=== PATIENT | male | born 1945 | race Caucasian/White ===

== ENCOUNTER 2022-09-28 23:09 | Inpatient (IN) | payer BC, OTHER ==
[2022-09-28] MEDS ORDERED: SODIUM CHLORIDE 0.9% 500 ML INFUS.BAG IV ONE (23:36)
[2022-09-29 00:19] LABS: VENOUS O2 SATURATION 31.4 % (70-80); VENOUS PCO2 44.4 mmHg (38-52); VENOUS PH 7.315 (7.310-7.410)
[2022-09-29 00:23] LABS: BASO % 0.1 % (0-2.0); EOS % 0.9 % (0-4.5); HEMATOCRIT 34.1 % (35.4-49); HEMOGLOBIN 12.1 GM/dL (11.7-16.9); LYMPH % 5.2 % (8-40); MCH 29.3 pg (25.7-33.7); MCHC 35.6 g/dl (32.0-35.9); MEAN CELL VOLUME 82.2 fl (80-96); MEAN PLT VOLUME 8.5 fl (7.5-11.1); MONO % 9.1 % (3.8-10.2); NEUT % 84.7 % (42.8-82.8); PLATELET COUNT 205 10^3/uL (134-434); RBC 4.15 M/mm3 (4.00-5.60); WHITE BLOOD COUNT 12.9 K/mm3 (4.0-10.0)
[2022-09-29 00:34] LABS: INR 1.16 (0.83-1.09); PROTHROMBIN TIME (PATIENT) 13.4 SEC (9.7-13.0)
[2022-09-29 00:37] LABS: CHLORIDE 101 mmol/L (98-107); SODIUM 130 mmol/L (136-145)
[2022-09-29 00:39] LABS: EPI CELLS 11 /uL (0-25.1); HYALINE CASTS 0 /uL (0-3.1); URINE APPEARANCE CLEAR; URINE BACTERIA 3 /uL (0-1359); URINE BILIRUBIN NEGATIVE (NEGATIVE); URINE COLOR YELLOW; URINE GLUCOSE (UA) 3+ (NEGATIVE); URINE KETONE TRACE (NEGATIVE); URINE LEUK ESTERASE NEGATIVE (NEGATIVE); URINE NITRITE NEGATIVE (NEGATIVE); URINE PROTEIN 2+ (NEGATIVE); URINE RBC 51 /uL (0-23.9); URINE UROBILINOGEN 0.2 mg/dL (0.2-1.0); URINE WBC 33 /uL (0-25.8)
[2022-09-29 00:40] LABS: ALBUMIN 2.8 g/dl (3.4-5.0); ANION GAP 8 MMOL/L (8-16); CALCIUM 9.8 mg/dL (8.5-10.1); CO2 21 mmol/L (21-32); LIPASE 86 U/L (73-393); MAGNESIUM 2.3 mg/dL (1.8-2.4)
[2022-09-29 00:43] LABS: CREATININE 1.8 mg/dL (0.55-1.3); SGOT/AST 38 U/L (15-37); SGPT/ALT 31 U/L (13-61)
[2022-09-29 00:45] LABS: BILIRUBIN,TOTAL 0.5 mg/dL (0.2-1); TOT PROT 6.4 g/dl (6.4-8.2)
[2022-09-29 00:46] LABS: ALK PHOS 98 U/L (45-117)
[2022-09-29] MEDS ORDERED: SODIUM CHLORIDE 0.9% 500 ML INFUS.BAG IV ONE (01:07)
[2022-09-29] MEDS ORDERED: INSULIN (LEVEMIR) 100 UNITS/ML UNITS SQ ONE (01:08)
[2022-09-29 01:32] LABS: GLUCOSE,RANDOM 559 mg/dL (74-106)
[2022-09-29] MEDS ORDERED: ASPIRIN 81 MG CHEWABLE TABLETS PO ONE (02:30)
[2022-09-29] MEDS ORDERED: TICAGRELOR 90 MG TABLET PO ONE ×2 (02:30→02:42)
[2022-09-29] MEDS ORDERED: ASPIRIN 81 MG CHEWABLE TABLETS ONE (02:42)
[2022-09-29] MEDS ORDERED: CEFTRIAXONE 1 GM in DEXTROSE 5%-WATER - 100 ML IVPB ONE (03:06)
[2022-09-29] MEDS ORDERED: AZITHROMYCIN IVPB 500 MG in DEXTROSE 5%-WATER - 250 ML IVPB ONE (03:06)
[2022-09-29] MEDS ORDERED: CEFTRIAXONE 1 GM/50 ML BAG ONE (03:40)
[2022-09-29] MEDS ORDERED: AZITHROMYCIN IVPB 500 MG/250 ML BAG IVPB ONE (03:40)
[2022-09-29] MEDS ORDERED: LACTATED RINGERS SOLUTION 1,000 ML/1,000 ML INFUS.BAG IV SCH (06:00)
[2022-09-29] MEDS ORDERED: HEPARIN NA (PORCINE) 5,000 UNITS/ML 1ML VIAL SQ SCH (06:00)
[2022-09-29 06:50] LABS: BASO % 0.3 % (0-2.0); HEMATOCRIT 30.5 % (35.4-49); LYMPH % 7.3 % (8-40); MCH 29.5 pg (25.7-33.7); MCHC 36.2 g/dl (32.0-35.9); MEAN CELL VOLUME 81.3 fl (80-96); MEAN PLT VOLUME 8.5 fl (7.5-11.1); MONO % 10.3 % (3.8-10.2); NEUT % 80.1 % (42.8-82.8); PLATELET COUNT 189 10^3/uL (134-434); RBC 3.75 M/mm3 (4.00-5.60); RDW 12.7 % (11.9-15.9); WHITE BLOOD COUNT 10.2 K/mm3 (4.0-10.0)
[2022-09-29] MEDS ORDERED: INSULIN SLIDING SCALE (NOVOLOG) 1 VIAL SQ SCH (07:00)
[2022-09-29 07:12] LABS: CALCIUM 9.1 mg/dL (8.5-10.1)
[2022-09-29 07:15] LABS: ALBUMIN 2.3 g/dl (3.4-5.0); BLOOD UREA NITROGEN 34.9 mg/dL (7-18)
[2022-09-29 07:16] LABS: CREATININE 1.4 mg/dL (0.55-1.3)
[2022-09-29 07:18] LABS: PHOSPHOROUS 2.2 mg/dL (2.5-4.9); TOT PROT 5.3 g/dl (6.4-8.2)
[2022-09-29 07:19] LABS: BILIRUBIN,TOTAL 0.4 mg/dL (0.2-1)
[2022-09-29] MEDS ORDERED: NAPH,MB-DB/K PH,MBDB POWDER PACKET PO ONE ×2 (07:49→08:04)
[2022-09-29] MEDS: INSULIN (NOVOLOG) ASPART 100 UNITS/ML 10ML VIAL SQ SCH ×5 (09:01→22:45)
[2022-09-29] MEDS: CEFTRIAXONE 1 GM in DEXTROSE 5%-WATER - 50 ML IVPB SCH (09:10)
[2022-09-29] MEDS: METOPROLOL TARTRATE 50 MG TABLET (FP) PO SCH ×2 (09:10→22:41)
[2022-09-29] MEDS: DOXYCYCLINE INJECTION 100 MG in DEXTROSE 5%-WATER 100 ML IVPB SCH ×2 (09:11→23:13)
[2022-09-29] MEDS: CLOPIDOGREL BISULFATE 75 MG TABLET (FP) PO SCH (09:11)
[2022-09-29] MEDS: ASPIRIN COATED 81 MG TABLET.EC PO SCH (09:11)
[2022-09-29] MEDS: ENOXAPARIN NA (PORCINE) 60 MG/0.6 ML DISP.SYRIN SQ SCH ×2 (09:13→22:41)
[2022-09-29] MEDS ORDERED: INSULIN (NOVOLOG) ASPART 100 UNITS/ML 10ML VIAL ONE ×2 (11:20→22:44)
[2022-09-29] MEDS ORDERED: INSULIN (LEVEMIR) 100 UNITS/ML UNITS SQ SCH ×2 (22:00)
[2022-09-29] MEDS ORDERED: ROSUVASTATIN CA 40 MG TABLET PO SCH (22:00)
[2022-09-29] MEDS: ROSUVASTATIN CA 20 MG TABLET PO SCH (22:46)
[2022-09-30] MEDS: INSULIN (NOVOLOG) ASPART 100 UNITS/ML 10ML VIAL SQ SCH ×4 (06:58→23:18)
[2022-09-30 07:21] LABS: HEMATOCRIT 33.1 % (35.4-49); HEMOGLOBIN 11.7 GM/dL (11.7-16.9); MCH 28.9 pg (25.7-33.7); MCHC 35.4 g/dl (32.0-35.9); MEAN CELL VOLUME 81.9 fl (80-96); MEAN PLT VOLUME 8.4 fl (7.5-11.1); PLATELET COUNT 247 10^3/uL (134-434); RBC 4.05 M/mm3 (4.00-5.60); RDW 12.9 % (11.9-15.9); WHITE BLOOD COUNT 10.2 K/mm3 (4.0-10.0)
[2022-09-30 07:33] LABS: BLOOD UREA NITROGEN 28.8 mg/dL (7-18); CALCIUM 9.8 mg/dL (8.5-10.1); MAGNESIUM 1.9 mg/dL (1.8-2.4)
[2022-09-30 07:36] LABS: CREATININE 1.5 mg/dL (0.55-1.3); PHOSPHOROUS 3.1 mg/dL (2.5-4.9)
[2022-09-30] MEDS ORDERED: PARoxetine HCL 30 MG TABLET PO SCH (10:00)
[2022-09-30] MEDS: METOPROLOL TARTRATE 50 MG TABLET (FP) PO SCH ×2 (10:15→21:55)
[2022-09-30] MEDS: DOXYCYCLINE INJECTION 100 MG in DEXTROSE 5%-WATER 100 ML IVPB SCH ×2 (10:16→21:43)
[2022-09-30] MEDS: CLOPIDOGREL BISULFATE 75 MG TABLET (FP) PO SCH (10:16)
[2022-09-30] MEDS: ENOXAPARIN NA (PORCINE) 60 MG/0.6 ML DISP.SYRIN SQ SCH ×2 (10:17→21:43)
[2022-09-30] MEDS: CEFTRIAXONE 1 GM in DEXTROSE 5%-WATER - 50 ML IVPB SCH (10:17)
[2022-09-30] MEDS: ASPIRIN COATED 81 MG TABLET.EC PO SCH (10:21)
[2022-09-30] MEDS: PARoxetine HCL 10 MG TABLET PO SCH (10:21)
[2022-09-30] MEDS: amLODIPine BESYLATE 10 MG TABLET (FP) PO SCH ×2 (10:21→10:22)
[2022-09-30] MEDS ORDERED: ACETAMINOPHEN 325 MG TABLET (FP) PO PRN ×2 (11:07→11:20)
[2022-09-30] MEDS ORDERED: INSULIN (NOVOLOG) ASPART 100 UNITS/ML 10ML VIAL ONE ×3 (11:23→23:15)
[2022-09-30] MEDS: ROSUVASTATIN CA 20 MG TABLET PO SCH (21:55)
[2022-10-01] MEDS ORDERED: INSULIN (LEVEMIR) 100 UNITS/ML UNITS SQ ONE (06:36)
[2022-10-01] MEDS: INSULIN (NOVOLOG) ASPART 100 UNITS/ML 10ML VIAL SQ SCH ×4 (06:38→22:29)
[2022-10-01] MEDS: INSULIN (LEVEMIR) 100 UNITS/ML UNITS SQ SCH (06:39)
[2022-10-01] MEDS ORDERED: INSULIN (LEVEMIR) 100 UNITS/ML UNITS SQ SCH (07:00)
[2022-10-01 07:48] LABS: HEMATOCRIT 31.4 % (35.4-49); HEMOGLOBIN 11.4 GM/dL (11.7-16.9); MCH 29.8 pg (25.7-33.7); MCHC 36.5 g/dl (32.0-35.9); MEAN CELL VOLUME 81.7 fl (80-96); MEAN PLT VOLUME 8.5 fl (7.5-11.1); PLATELET COUNT 275 10^3/uL (134-434); RBC 3.84 M/mm3 (4.00-5.60); RDW 12.6 % (11.9-15.9); WHITE BLOOD COUNT 10.7 K/mm3 (4.0-10.0)
[2022-10-01 08:04] LABS: CALCIUM 9.8 mg/dL (8.5-10.1)
[2022-10-01 08:05] LABS: BLOOD UREA NITROGEN 28.6 mg/dL (7-18); MAGNESIUM 1.9 mg/dL (1.8-2.4)
[2022-10-01 08:08] LABS: CREATININE 1.5 mg/dL (0.55-1.3); PHOSPHOROUS 3.4 mg/dL (2.5-4.9)
[2022-10-01] MEDS: amLODIPine BESYLATE 10 MG TABLET (FP) PO SCH (09:10)
[2022-10-01] MEDS: CLOPIDOGREL BISULFATE 75 MG TABLET (FP) PO SCH (09:10)
[2022-10-01] MEDS: PARoxetine HCL 10 MG TABLET PO SCH (09:10)
[2022-10-01] MEDS: ASPIRIN COATED 81 MG TABLET.EC PO SCH (09:10)
[2022-10-01] MEDS: METOPROLOL TARTRATE 50 MG TABLET (FP) PO SCH ×2 (09:10→22:29)
[2022-10-01] MEDS: DOXYCYCLINE INJECTION 100 MG in DEXTROSE 5%-WATER 100 ML IVPB SCH ×2 (09:11→22:26)
[2022-10-01] MEDS: CEFTRIAXONE 1 GM in DEXTROSE 5%-WATER - 50 ML IVPB SCH (09:11)
[2022-10-01] MEDS: ENOXAPARIN NA (PORCINE) 60 MG/0.6 ML DISP.SYRIN SQ SCH (09:12)
[2022-10-01] MEDS ORDERED: INSULIN (NOVOLOG) ASPART 100 UNITS/ML 10ML VIAL ONE ×2 (17:14→22:28)
[2022-10-01] MEDS: ROSUVASTATIN CA 20 MG TABLET PO SCH (22:24)
[2022-10-02] MEDS: INSULIN (NOVOLOG) ASPART 100 UNITS/ML 10ML VIAL SQ SCH ×4 (06:50→21:13)
[2022-10-02] MEDS: INSULIN (LEVEMIR) 100 UNITS/ML UNITS SQ SCH (06:51)
[2022-10-02 07:51] LABS: BASO % 0.3 % (0-2.0); EOS % 3.2 % (0-4.5); HEMATOCRIT 30.6 % (35.4-49); LYMPH % 8.7 % (8-40); MCH 29.3 pg (25.7-33.7); MCHC 35.8 g/dl (32.0-35.9); MEAN CELL VOLUME 81.9 fl (80-96); MEAN PLT VOLUME 8.4 fl (7.5-11.1); MONO % 11.3 % (3.8-10.2); NEUT % 76.5 % (42.8-82.8); PLATELET COUNT 301 10^3/uL (134-434); RBC 3.73 M/mm3 (4.00-5.60); RDW 12.3 % (11.9-15.9); WHITE BLOOD COUNT 8.2 K/mm3 (4.0-10.0)
[2022-10-02 08:03] LABS: CALCIUM 10.5 mg/dL (8.5-10.1)
[2022-10-02 08:04] LABS: ALBUMIN 2.2 g/dl (3.4-5.0)
[2022-10-02 08:06] LABS: CREATININE 1.5 mg/dL (0.55-1.3)
[2022-10-02 08:08] LABS: BILIRUBIN,TOTAL 0.4 mg/dL (0.2-1); TOT PROT 5.6 g/dl (6.4-8.2)
[2022-10-02] MEDS ORDERED: INSULIN (LEVEMIR) 100 UNITS/ML UNITS SQ SCH ×3 (09:21→22:00)
[2022-10-02] MEDS: DOXYCYCLINE INJECTION 100 MG in DEXTROSE 5%-WATER 100 ML IVPB SCH ×2 (09:46→21:12)
[2022-10-02] MEDS: CEFTRIAXONE 1 GM in DEXTROSE 5%-WATER - 50 ML IVPB SCH (09:50)
[2022-10-02] MEDS: ASPIRIN COATED 81 MG TABLET.EC PO SCH (10:04)
[2022-10-02] MEDS: CLOPIDOGREL BISULFATE 75 MG TABLET (FP) PO SCH (10:04)
[2022-10-02] MEDS: amLODIPine BESYLATE 10 MG TABLET (FP) PO SCH (10:04)
[2022-10-02] MEDS: PARoxetine HCL 10 MG TABLET PO SCH (10:04)
[2022-10-02] MEDS: METOPROLOL TARTRATE 50 MG TABLET (FP) PO SCH ×2 (10:04→21:12)
[2022-10-02 11:14] LABS: PHOSPHOROUS 4.3 mg/dL (2.5-4.9)
[2022-10-02] MEDS ORDERED: INSULIN (NOVOLOG) ASPART 100 UNITS/ML 10ML VIAL ONE ×2 (12:19→22:23)
[2022-10-02] MEDS: ROSUVASTATIN CA 20 MG TABLET PO SCH (21:12)
[2022-10-03] MEDS ORDERED: INSULIN (NOVOLOG) ASPART 100 UNITS/ML 10ML VIAL ONE ×2 (06:32→21:35)
[2022-10-03] MEDS: INSULIN (NOVOLOG) ASPART 100 UNITS/ML 10ML VIAL SQ SCH ×7 (06:36→21:36)
[2022-10-03] MEDS ORDERED: INSULIN (LEVEMIR) 100 UNITS/ML UNITS SQ SCH ×2 (07:00→22:00)
[2022-10-03 07:48] LABS: HEMOGLOBIN 11.3 GM/dL (11.7-16.9); MCH 29.7 pg (25.7-33.7); MCHC 36.6 g/dl (32.0-35.9); MEAN CELL VOLUME 81.4 fl (80-96); MEAN PLT VOLUME 7.5 fl (7.5-11.1); PLATELET COUNT 293 10^3/uL (134-434); RBC 3.81 M/mm3 (4.00-5.60); RDW 12.6 % (11.9-15.9); WHITE BLOOD COUNT 7.1 K/mm3 (4.0-10.0)
[2022-10-03 08:21] LABS: CALCIUM 10.2 mg/dL (8.5-10.1)
[2022-10-03 08:22] LABS: BLOOD UREA NITROGEN 28.6 mg/dL (7-18)
[2022-10-03 08:25] LABS: CREATININE 1.5 mg/dL (0.55-1.3)
[2022-10-03] MEDS: CLOPIDOGREL BISULFATE 75 MG TABLET (FP) PO SCH (09:31)
[2022-10-03] MEDS: amLODIPine BESYLATE 10 MG TABLET (FP) PO SCH (09:31)
[2022-10-03] MEDS: METOPROLOL TARTRATE 50 MG TABLET (FP) PO SCH ×2 (09:31→21:38)
[2022-10-03] MEDS: PARoxetine HCL 10 MG TABLET PO SCH (09:31)
[2022-10-03] MEDS: ASPIRIN COATED 81 MG TABLET.EC PO SCH (09:31)
[2022-10-03] MEDS: ENOXAPARIN NA (PORCINE) 40 MG/0.4 ML DISP.SYRIN SQ SCH (09:32)
[2022-10-03] MEDS: CEFTRIAXONE 1 GM in DEXTROSE 5%-WATER - 50 ML IVPB SCH (09:32)
[2022-10-03] MEDS: DOXYCYCLINE INJECTION 100 MG in DEXTROSE 5%-WATER 100 ML IVPB SCH (09:33)
[2022-10-03] MEDS: DOXYCYCLINE HYCLATE 100 MG CAPSULE PO SCH (18:17)
[2022-10-03] MEDS: ROSUVASTATIN CA 20 MG TABLET PO SCH (21:37)
[2022-10-03] MEDS: INSULIN (LEVEMIR) 100 UNITS/ML UNITS SQ SCH (21:37)
[2022-10-04] MEDS: INSULIN (NOVOLOG) ASPART 100 UNITS/ML 10ML VIAL SQ SCH ×7 (06:17→21:25)
[2022-10-04] MEDS: INSULIN (LEVEMIR) 100 UNITS/ML UNITS SQ SCH ×2 (06:17→21:24)
[2022-10-04 07:59] LABS: HEMATOCRIT 31.3 % (35.4-49); HEMOGLOBIN 11.4 GM/dL (11.7-16.9); MCH 29.7 pg (25.7-33.7); MCHC 36.4 g/dl (32.0-35.9); MEAN CELL VOLUME 81.6 fl (80-96); MEAN PLT VOLUME 7.9 fl (7.5-11.1); PLATELET COUNT 320 10^3/uL (134-434); RBC 3.84 M/mm3 (4.00-5.60); RDW 12.5 % (11.9-15.9); WHITE BLOOD COUNT 7.1 K/mm3 (4.0-10.0)
[2022-10-04 08:59] LABS: CALCIUM 10.1 mg/dL (8.5-10.1); MAGNESIUM 2.1 mg/dL (1.8-2.4)
[2022-10-04 09:00] LABS: BLOOD UREA NITROGEN 32.5 mg/dL (7-18)
[2022-10-04 09:03] LABS: CREATININE 1.5 mg/dL (0.55-1.3); PHOSPHOROUS 4.6 mg/dL (2.5-4.9)
[2022-10-04] MEDS ORDERED: REGADENOSON 0.4 MG/5 ML PRE-FILLED SYRINGE IVPUSH ONE ×2 (09:36→09:45)
[2022-10-04] MEDS: ENOXAPARIN NA (PORCINE) 40 MG/0.4 ML DISP.SYRIN SQ SCH (11:02)
[2022-10-04] MEDS: ASPIRIN COATED 81 MG TABLET.EC PO SCH (11:03)
[2022-10-04] MEDS: PARoxetine HCL 10 MG TABLET PO SCH (11:03)
[2022-10-04] MEDS: METOPROLOL TARTRATE 50 MG TABLET (FP) PO SCH ×2 (11:03→21:15)
[2022-10-04] MEDS: CLOPIDOGREL BISULFATE 75 MG TABLET (FP) PO SCH (11:03)
[2022-10-04] MEDS: CEFTRIAXONE 1 GM in DEXTROSE 5%-WATER - 50 ML IVPB SCH (11:03)
[2022-10-04] MEDS: amLODIPine BESYLATE 10 MG TABLET (FP) PO SCH (11:04)
[2022-10-04] MEDS: DOXYCYCLINE HYCLATE 100 MG CAPSULE PO SCH ×2 (11:04→17:09)
[2022-10-04] MEDS: ROSUVASTATIN CA 20 MG TABLET PO SCH (21:16)
[2022-10-05] MEDS: INSULIN (NOVOLOG) ASPART 100 UNITS/ML 10ML VIAL SQ SCH ×4 (06:43→11:22)
[2022-10-05] MEDS: INSULIN (LEVEMIR) 100 UNITS/ML UNITS SQ SCH (06:45)
[2022-10-05 07:30] LABS: HEMATOCRIT 31.5 % (35.4-49); HEMOGLOBIN 11.5 GM/dL (11.7-16.9); MCH 29.3 pg (25.7-33.7); MCHC 36.4 g/dl (32.0-35.9); MEAN CELL VOLUME 80.6 fl (80-96); MEAN PLT VOLUME 7.7 fl (7.5-11.1); PLATELET COUNT 298 10^3/uL (134-434); RBC 3.91 M/mm3 (4.00-5.60); RDW 12.5 % (11.9-15.9); WHITE BLOOD COUNT 6.7 K/mm3 (4.0-10.0)
[2022-10-05 07:49] LABS: CALCIUM 9.8 mg/dL (8.5-10.1)
[2022-10-05 07:50] LABS: MAGNESIUM 2.1 mg/dL (1.8-2.4)
[2022-10-05 07:53] LABS: CREATININE 1.5 mg/dL (0.55-1.3); PHOSPHOROUS 4.1 mg/dL (2.5-4.9)
[2022-10-05] MEDS: PARoxetine HCL 10 MG TABLET PO SCH (10:42)
[2022-10-05] MEDS: ENOXAPARIN NA (PORCINE) 40 MG/0.4 ML DISP.SYRIN SQ SCH (10:42)
[2022-10-05] MEDS: ASPIRIN COATED 81 MG TABLET.EC PO SCH (10:43)
[2022-10-05] MEDS: CLOPIDOGREL BISULFATE 75 MG TABLET (FP) PO SCH (10:43)
[2022-10-05] MEDS: METOPROLOL TARTRATE 50 MG TABLET (FP) PO SCH (10:43)
[2022-10-05] MEDS: amLODIPine BESYLATE 10 MG TABLET (FP) PO SCH (10:43)
[2022-10-05 14:19] VITALS: RESP 22
[2022-10-05 14:43] VITALS: BP 132/67; PULSE 60; TEMP 98.1
[2022-10-05 17:10] VITALS: BMI 23.2
== END 2022-10-05 15:30 | disposition short-term general hospital (02) | DRG 193 ==
LOC: JER 23:09 → JERBED 09-29 03:01 → J4W 09-29 05:12
PROVIDERS: ADMIT Student in an Organized Health Care Education/Training Program; ATTEND Internal Medicine
DX: J18.9 Pneumonia, unspecified organism (principal); G93.41 Metabolic encephalopathy; N17.9 Acute kidney failure, unspecified; I24.8 Other forms of acute ischemic heart disease; I25.10 Atherosclerotic heart disease of native coronary artery without angina pectoris; E78.5 Hyperlipidemia, unspecified; E11.65 Type 2 diabetes mellitus with hyperglycemia; N18.30 Chronic kidney disease, stage 3 unspecified; I13.10 Hypertensive heart and chronic kidney disease without heart failure, with stage 1 through stage 4 chronic kidney disease, or unspecified chronic kidney disease; K57.90 Diverticulosis of intestine, part unspecified, without perforation or abscess without bleeding; N20.0 Calculus of kidney; R77.8 Other specified abnormalities of plasma proteins; E11.22 Type 2 diabetes mellitus with diabetic chronic kidney disease; Z95.5 Presence of coronary angioplasty implant and graft
CPT/HCPCS: 0241U-QW; 36415; 70450-TC; 71045-TC-FY; 71250-TC; 74177-TC; 76870-TC; 78452-TC; 80048; 80053; 80061; 81003; 82010; 82140; 82803; 82962; 83036; 83605; 83690; 83735; 84100; 84439; 84443; 84484; 85025; 85027; 85610; 85730; 87086; 87899; 93005; 93010; 93017; 93306-TC; 97116-GP; 97161-GP; 99285-25; A9502; C9803-CS; J1644; J2785; U0003; U0005

== ENCOUNTER 2023-02-15 00:18 | Inpatient (IN) | payer OTHER ==
[2023-02-15 00:34] VITALS: BMI 24.8
[2023-02-15] MEDS ORDERED: ACETAMINOPHEN 1000 MG/100 ML BAG IVPB ONE (00:53)
[2023-02-15] MEDS ORDERED: ACETAMINOPHEN INJECTION 100 ML IVPB ONE (01:03)
[2023-02-15 01:38] LABS: BASO % 0.4 % (0-2.0); HEMATOCRIT 37.9 % (35.4-49); HEMOGLOBIN 13.3 GM/dL (11.7-16.9); LYMPH % 12.2 % (8-40); MCH 29.2 pg (25.7-33.7); MCHC 35.1 g/dl (32.0-35.9); MEAN CELL VOLUME 83.2 fl (80-96); MEAN PLT VOLUME 7.6 fl (7.5-11.1); MONO % 8.9 % (3.8-10.2); NEUT % 72.5 % (42.8-82.8); PLATELET COUNT 202 10^3/uL (134-434); RBC 4.55 M/mm3 (4.00-5.60); RDW 13.9 % (11.9-15.9); WHITE BLOOD COUNT 8.3 K/mm3 (4.0-10.0)
[2023-02-15 01:49] LABS: INR 1.02 (0.83-1.09); PROTHROMBIN TIME (PATIENT) 11.8 SEC (9.7-13.0)
[2023-02-15 01:52] LABS: ACTIVATED PTT 34.6 SECONDS (25.2-36.5)
[2023-02-15 01:55] LABS: POTASSIUM 4.6 mmol/L (3.5-5.1)
[2023-02-15 01:57] LABS: ALBUMIN 3.6 g/dl (3.4-5.0); BLOOD UREA NITROGEN 28.9 mg/dL (7-18)
[2023-02-15 02:01] LABS: CREATININE 1.7 mg/dL (0.55-1.3)
[2023-02-15 02:02] LABS: BILIRUBIN,TOTAL 0.3 mg/dL (0.2-1); TOT PROT 6.9 g/dl (6.4-8.2)
[2023-02-15] MEDS ORDERED: SODIUM CHLORIDE 0.9% 500 ML INFUS.BAG IV ONE (02:19)
[2023-02-15] MEDS ORDERED: morphine CARPU-JECT 4 MG/1 ML DISP.SYRIN IVPUSH ONE (05:15)
[2023-02-15] MEDS ORDERED: CLOPIDOGREL BISULFATE 75 MG TABLET (FP) PO SCH (10:00)
[2023-02-15] MEDS ORDERED: PARoxetine HCL 10 MG TABLET PO SCH (10:00)
[2023-02-15] MEDS ORDERED: METOPROLOL TARTRATE 50 MG TABLET (FP) PO SCH (10:00)
[2023-02-15] MEDS: INSULIN SLIDING SCALE (NOVOLOG) 1 VIAL SQ SCH ×2 (10:55→12:04)
[2023-02-15 11:53] LABS: BASO % 0.1 % (0-2.0); EOS % 6.1 % (0-4.5); HEMATOCRIT 38.2 % (35.4-49); HEMOGLOBIN 13.2 GM/dL (11.7-16.9); LYMPH % 9.3 % (8-40); MCH 28.6 pg (25.7-33.7); MCHC 34.5 g/dl (32.0-35.9); MEAN CELL VOLUME 82.8 fl (80-96); MEAN PLT VOLUME 7.8 fl (7.5-11.1); MONO % 7.1 % (3.8-10.2); NEUT % 77.4 % (42.8-82.8); PLATELET COUNT 196 10^3/uL (134-434); RBC 4.62 M/mm3 (4.00-5.60); RDW 13.3 % (11.9-15.9); WHITE BLOOD COUNT 8.9 K/mm3 (4.0-10.0)
[2023-02-15 12:14] LABS: POTASSIUM 4.5 mmol/L (3.5-5.1)
[2023-02-15 12:17] LABS: ALBUMIN 3.6 g/dl (3.4-5.0); BLOOD UREA NITROGEN 23.4 mg/dL (7-18); MAGNESIUM 2.5 mg/dL (1.8-2.4)
[2023-02-15 12:20] LABS: CREATININE 1.4 mg/dL (0.55-1.3); PHOSPHOROUS 2.7 mg/dL (2.5-4.9)
[2023-02-15 12:22] LABS: BILIRUBIN,TOTAL 0.4 mg/dL (0.2-1); TOT PROT 6.7 g/dl (6.4-8.2)
[2023-02-15] MEDS ORDERED: METOCLOPRAMIDE HCL INJECTION 10 MG/2 ML VIAL IVPUSH PRN (14:38)
[2023-02-15] MEDS ORDERED: LACTATED RINGERS SOLUTION 1,000 ML/1,000 ML INFUS.BAG IV SCH (14:45)
[2023-02-15] MEDS ORDERED: traMADol HCL 50 MG TABLET PO PRN (14:53)
[2023-02-15 15:37] VITALS: BP 135/80; PULSE 86; RESP 16; TEMP 98
[2023-02-15] MEDS ORDERED: ROSUVASTATIN CA 20 MG TABLET PO SCH (22:00)
[2023-02-15] MEDS ORDERED: INSULIN (LEVEMIR) 100 UNITS/ML UNITS SQ SCH (22:00)
== END 2023-02-15 15:39 | disposition left against medical advice (07) | DRG 393 ==
LOC: JER 00:18 → JERBED 04:26 → OBSVTOIN 05:59 → J8W 08:13
PROVIDERS: ADMIT Internal Medicine
DX: K40.30 Unilateral inguinal hernia, with obstruction, without gangrene, not specified as recurrent (principal); U07.1 COVID-19; E11.22 Type 2 diabetes mellitus with diabetic chronic kidney disease; N18.30 Chronic kidney disease, stage 3 unspecified; I12.9 Hypertensive chronic kidney disease with stage 1 through stage 4 chronic kidney disease, or unspecified chronic kidney disease; I69.320 Aphasia following cerebral infarction; E78.5 Hyperlipidemia, unspecified; I25.10 Atherosclerotic heart disease of native coronary artery without angina pectoris; Z95.5 Presence of coronary angioplasty implant and graft
CPT/HCPCS: 0241U-QW; 36415; 71045-TC-FY; 74177-TC; 80053; 82962; 83605; 83735; 84100; 85025; 85610; 85730; 86850; 86900; 86901; 93005; 93010; 99285-25; G0378; Q9967

== ENCOUNTER 2023-04-17 13:59 | Emergency (ER) | payer OTHER ==
[2023-04-17 14:33] VITALS: BP 149/75; PULSE 72; RESP 19; TEMP 98.5; BMI 24.3
[2023-04-17 17:38] LABS: EPI CELLS 22 /uL (0-25.1); HYALINE CASTS 2 /uL (0-3.1); PH,URINE 5.5 (5.0-8.0); URINE APPEARANCE CLOUDY; URINE BACTERIA 93 /uL (0-1359); URINE BILIRUBIN NEGATIVE (NEGATIVE); URINE COLOR RED; URINE GLUCOSE (UA) 3+ (NEGATIVE); URINE KETONE NEGATIVE (NEGATIVE); URINE LEUK ESTERASE 1+ (NEGATIVE); URINE NITRITE NEGATIVE (NEGATIVE); URINE PROTEIN 3+ (NEGATIVE); URINE RBC 23891 /uL (0-23.9); URINE UROBILINOGEN 0.2 mg/dL (0.2-1.0); URINE WBC 68 /uL (0-25.8)
== END 2023-04-17 18:40 | disposition home or self-care (01) ==
LOC: JER 13:59
DX: Z46.6 Encounter for fitting and adjustment of urinary device (principal)
CPT/HCPCS: 81003; 87086; 87186; 99283-25

== ENCOUNTER 2023-09-18 23:17 | Inpatient (IN) | payer OTHER ==
[2023-09-18 23:34] VITALS: BMI 27.9
[2023-09-19] MEDS ORDERED: MAG HYDROX/AL HYDROX/SIMETH 30 ML UNIT-DOSE CUP ONE (00:54)
[2023-09-19] MEDS ORDERED: FAMOTIDINE 20 MG/50 ML IVPB 20 MG/50 ML MG IVPB ONE (00:55)
[2023-09-19] MEDS: SODIUM CHLORIDE 1,000 ML IV STA ×2 (01:16→05:35)
[2023-09-19] MEDS: FAMOTIDINE 20 MG/50 ML IVPB 20 MG/50 ML MG IVPB ONE (01:16)
[2023-09-19] MEDS: MAG HYDROX/AL HYDROX/SIMETH 30 ML UNIT-DOSE CUP PO ONE (01:16)
[2023-09-19 01:23] LABS: BASO % 0.4 % (0-2.0); EOS % 2.9 % (0-4.5); HEMATOCRIT 40.1 % (35.4-49); HEMOGLOBIN 14.2 GM/dL (11.7-16.9); LYMPH % 16.1 % (8-40); MCH 29.5 pg (25.7-33.7); MCHC 35.3 g/dl (32.0-35.9); MEAN CELL VOLUME 83.4 fl (80-96); MEAN PLT VOLUME 8.9 fl (7.5-11.1); NEUT % 70.6 % (42.8-82.8); PLATELET COUNT 146 10^3/uL (134-434); RBC 4.81 M/mm3 (4.00-5.60); RDW 13.3 % (11.9-15.9); VENOUS BASE EXCESS -5.3 mmol/L (-2-2); VENOUS O2 SATURATION 37.1 % (70-80); VENOUS PCO2 48.2 mmHg (38-52); VENOUS PH 7.273 (7.310-7.410); WHITE BLOOD COUNT 7.9 K/mm3 (4.0-10.0)
[2023-09-19 01:31] LABS: INR 1.03 (0.83-1.09); PROTHROMBIN TIME (PATIENT) 11.9 SEC (9.7-13.0)
[2023-09-19 01:34] LABS: ACTIVATED PTT 30.8 SECONDS (25.2-36.5)
[2023-09-19 01:42] LABS: CHLORIDE 99 mmol/L (98-107); POTASSIUM 4.1 mmol/L (3.5-5.1); SODIUM 131 mmol/L (136-145)
[2023-09-19 01:44] LABS: CALCIUM 10.8 mg/dL (8.5-10.1)
[2023-09-19 01:45] LABS: ALBUMIN 3.8 g/dl (3.4-5.0); ANION GAP 8 mmol/L (4-13); BLOOD UREA NITROGEN 36.8 mg/dL (7-18); CO2 24 mmol/L (21-32); MAGNESIUM 2.1 mg/dL (1.8-2.4)
[2023-09-19 01:48] LABS: SGOT/AST 10 U/L (15-37); SGPT/ALT 18 U/L (13-61)
[2023-09-19 01:50] LABS: BILIRUBIN,TOTAL 0.8 mg/dL (0.2-1)
[2023-09-19 01:51] LABS: ALK PHOS 95 U/L (45-117)
[2023-09-19 01:56] LABS: GLUCOSE,RANDOM 536 mg/dL (74-106)
[2023-09-19] MEDS: SODIUM CHLORIDE 0.9% 500 ML INFUS.BAG IV ONE (02:14)
[2023-09-19 02:21] LABS: EPI CELLS 1 /uL (0-25.1); HYALINE CASTS 0 /uL (0-3.1); URINE APPEARANCE CLEAR; URINE BACTERIA 2 /uL (0-1359); URINE BILIRUBIN NEGATIVE (NEGATIVE); URINE COLOR YELLOW; URINE GLUCOSE (UA) 3+ (NEGATIVE); URINE KETONE TRACE (NEGATIVE); URINE LEUK ESTERASE NEGATIVE (NEGATIVE); URINE NITRITE NEGATIVE (NEGATIVE); URINE PROTEIN 2+ (NEGATIVE); URINE RBC 12 /uL (0-23.9); URINE UROBILINOGEN 0.2 mg/dL (0.2-1.0); URINE WBC 4 /uL (0-25.8)
[2023-09-19] MEDS ORDERED: INSULIN REGULAR HUMAN 100 UNITS/ML *VIAL ONE (02:57)
[2023-09-19] MEDS: INSULIN REGULAR HUMAN 100 UNITS/ML *VIAL SQ ONE (03:12)
[2023-09-19 03:32] LABS: CHLORIDE 106 mmol/L (98-107); POTASSIUM 4.3 mmol/L (3.5-5.1); SODIUM 134 mmol/L (136-145)
[2023-09-19 03:34] LABS: ANION GAP 4 mmol/L (4-13); BLOOD UREA NITROGEN 33.1 mg/dL (7-18); CALCIUM 9.5 mg/dL (8.5-10.1); CO2 24 mmol/L (21-32)
[2023-09-19 03:38] LABS: CREATININE 1.6 mg/dL (0.55-1.3)
[2023-09-19 04:00] LABS: GLUCOSE,RANDOM 454 mg/dL (74-106)
[2023-09-19] MEDS: INSULIN REGULAR HUMAN 100 UNITS/ML *VIAL IVPUSH ONE (05:36)
[2023-09-19] MEDS: SODIUM CHLORIDE 1,000 ML IV SCH (05:36)
[2023-09-19] MEDS: INSULIN ASPART SLIDING SCALE (NOVOLOG) 1 VIAL SQ SCH (08:00)
[2023-09-19] MEDS ORDERED: HEPARIN NA (PORCINE) 5,000 UNITS/ML 1ML VIAL ONE (10:23)
[2023-09-19] MEDS ORDERED: INSULIN (LEVEMIR) 100 UNITS/ML UNITS SQ ONE (10:25)
[2023-09-19 10:30] VITALS: RESP 18
[2023-09-19] MEDS: HEPARIN NA (PORCINE) 5,000 UNITS/ML 1ML VIAL SQ SCH (10:30)
[2023-09-19] MEDS: INSULIN (LEVEMIR) 100 UNITS/ML UNITS SQ SCH (10:30)
[2023-09-19 11:48] VITALS: BP 135/78; PULSE 71; TEMP 97.6
== END 2023-09-19 12:09 | disposition home or self-care (01) | DRG 639 ==
LOC: JER 23:17 → JERBED 09-19 02:51 → OBSVTOIN 09-19 06:01
PROVIDERS: ADMIT Internal Medicine; ATTEND Nurse Practitioner Family
DX: E11.65 Type 2 diabetes mellitus with hyperglycemia (principal); I12.9 Hypertensive chronic kidney disease with stage 1 through stage 4 chronic kidney disease, or unspecified chronic kidney disease; N18.30 Chronic kidney disease, stage 3 unspecified; E11.22 Type 2 diabetes mellitus with diabetic chronic kidney disease; E78.5 Hyperlipidemia, unspecified; Z86.73 Personal history of transient ischemic attack (TIA), and cerebral infarction without residual deficits
CPT/HCPCS: 36415; 71045-TC-FY; 80048; 80053; 81003; 82010; 82803; 82962; 83735; 84100; 84484; 85025; 85610; 85730; 87086; 93005; 93010; 99285-25; G0378; J1644

== ENCOUNTER 2023-11-17 15:16 | Emergency (ER) | payer OTHER ==
[2023-11-17 15:24] VITALS: BP 163/73; PULSE 80; RESP 18; TEMP 98.5; BMI 25.1
== END 2023-11-17 16:02 | disposition home or self-care (01) ==
LOC: JERFT 15:16
DX: Z76.0 Encounter for issue of repeat prescription (principal)
CPT/HCPCS: 99281-25